=== PATIENT | male | born 1970 | race Caucasian/White ===

== ENCOUNTER 2016-08-07 08:09 | Emergency (ER) | payer OTHER ==
--- NOTE | ~2016-08-07 | EKG ---
PATIENT: SUAD ARMENDARIZ UNIT #: [id number] Ventricular Rate: 79 BPM Atrial Rate: 79 BPM P-R Interval: 162 ms QRS Duration: 112 ms Q-T Interval: 392 ms QTC Calculation(Bezet): 449 ms P Gilbert: 27 degrees Calculated R Gilbert: 40 degrees Calculated T Gilbert: 14 degrees Diagnosis Line: Normal sinus rhythm Diagnosis Line: Normal ECG Diagnosis Line: When compared with ECG of 19-FEB-2016 17:02, Diagnosis Line: No significant change was found Diagnosis Line: Confirmed by JACKIE PALMER MD ([id number]) on Diagnosis Line: 08/08/2016 3:57:45 PM INTERPRETING MD: LAUREN
--- NOTE | ~2016-08-07 | CR63 ---
[facility] A Service of [facility] & [facility] RADIOLOGY TEXT RESULTS PATIENT: SUAD ARMENDARIZ LOCATION: [facility] : 72 UNIT #: [id number] AGE: [address]: Justine Machuca SEX: M ORDER DR: [id number] [facility] [place] [address] [place], [place] [address] [id number] MR#: [id number] Acc #: [id number] NAME: SUAD ARMENDARIZ : 1970 SEX: M STUDY DATE/TIME: 08/07/2016 8:51 UNIT: [facility] ROOM: STUDY DESCRIPTION: CR Chest 2 View Attending Physician: Justine Machuca P.A.-C. Ordering Physician: Justine Machuca P.A.-C. Primary Care Physician: Chico Luna M.D. MEDICAL IMAGING REPORT This report is preliminary unless electronic signature is present EXAM Chest PA and lateral, 08/07/2016 HISTORY Cough, fatigue and chest congestion for 5 days. Benign essential hypertension. Previous smoker. FINDINGS PA and lateral examination of the chest upright shows a good expansion of the parenchyma with a normal distribution of the pulmonary vascularity. There is no indication of congestion, effusion, infiltrate, tumor, or nodular density. The pleural reflections and diaphragmatic contours are normal. The cardiac silhouette and mediastinal anatomy is within normal limits. IMPRESSION Normal chest. Dictated by... Foster Villegas M.D. THIS IS AN ELECTRONICALLY VERIFIED REPORT Foster Villegas M.D. at 08/07/2016 1:44 PM Hung TD: 08/07/2016 09:39 JOB #: [id number] MEDICAL IMAGING REPORT Page 1 of 1 COPY
[~2016-08-07 08:09] MED LIST: ACETAMINOPHEN PO; ALBUTEROL17 GM INH; BACTRIM 400-801 TA1 PO; BACTRIM DS TABL1 TA1 PO; BACTRIM DS TABL1 TA2 DOB; BACTRIM DS TABL1 TAB PO; BENZONATATE PO; CIPRO250 MG PO; CLONAZEPAM2 MG PO; CLONIDINE HCL0.1 MG PO; CORICIDIN HBP F1 TAB PO; COUGH SYRUP; COZAAR PO; DELSYM30 MG/5 ML PO; DICLOFENAC PO; DICYCLOMINE HCL20 MG PO; DOXYCYCLINE HY100 M1 PO; DOXYCYCLINE PO; DOXYCYCLINE150 MG PO; ERYC250 MG PO; ERYTHROMYCIN B500 MG PO; ERYTHROMYCIN F250 MG PO; ERYTHROMYCIN500 MG PO; FLEXERIL PO; FLEXERIL10 M1 PO; FLEXERIL10 MG PO; FLONASE 0.05% N16 G1; FLONASE 0.05% N16 G1 INH; FLONASE 0.05% N16 GM; FLONASE16 GM; GUAIFENESIN400 M1 PO; HCTZ PO; HYDROCHLOROTHIA25 MG; HYDROCHLOROTHIA25 MG PO; HYDROCODON-ACE1 EAC4 PO; HYDROCODON-ACE1 EAC5 PO; HYDROCODON-ACE1 EACH PO; IBUPROFEN PO; IBUPROFEN800 MG PO; IMODIUM2 MG PO; KETOPROFEN PO; KLONOPIN; KLONOPIN PO; KLONOPIN2 MG PO; LISINOPRIL; LISINOPRIL PO; LISINOPRIL10 MG PO; LISINOPRIL20 MG PO; LORATADINE PO; LORTAB 10-5001 EACH PO; LORTAB 5/500 TA1 TA1 PO; LORTAB 7.5-5001 TAB PO; LORTAB 7.51 TAB 7.5/ PO; MEDROL DOSEPAK4 MG DOB; MEDROL PO; MOBIC PO; MUCINEX D ER T1 EACH PO; MUCINEX DM ER1 EAC1 PO; MUCINEX DM1 TAB.SR . PO; NEXIUM PO; NORCO 5/325 TAB1 TAB PO; OMNICEF PO; PERCOCET 5-3251 TAB PO; PERCOCET 71 UDTAB 71 PO; PHENERGAN DM1 ML PO; PHENERGAN PO; PHENERGAN PR; PHENERGAN VC W120 M1 PO; PHENERGAN W/CO120 ML PO; PHENERGAN/CODEIN5 ML PO; PHENERGAN25 MG PO; PREDNISONE PO; PRILOSEC PO; PROMETHAZINE HC25 MG PO; PROMETHAZINE V240 ML PO; PROTONIX PO; RANITIDINE HCL150 M1 PO; REGLAN10 MG PO; ROBITUSSIN A-C-S1 ML PO; ROBITUSSIN ALL118 ML PO; RONDEX SYRUP118 ML PO; STERAPRED5 MG/DOSE1 PO; SUDAFED30 M1 PO; TESSALON200 MG PO; TUSSIONEX PENN473 ML PO; ULTRACET TABLET1 TAB PO; ULTRAM PO; VIBRAMYCIN100 M1 PO; VICODIN PO; VOLTAREN75 MG; WELLBUTRIN; WELLBUTRIN SR150 M1 PO; WELLBUTRIN SR150 MG PO; ZANTAC PO; ZANTAC150 M1 PO; ZANTAC150 MG PO; ZESTRIL10 M1; ZITHROMAX PO; ZITHROMAX1 G/PKT PO; ZYRTEC PO; ZYRTEC10 M1 PO; [UNRECOGNIZED DRUG - REMARK]
== END 2016-08-07 09:28 | disposition home or self-care (01) ==
LOC: CED 08:09
DX: J06.9 Acute upper respiratory infection, unspecified (principal); I10 Essential (primary) hypertension; K21.9 Gastro-esophageal reflux disease without esophagitis; F41.9 Anxiety disorder, unspecified; Z90.89 Acquired absence of other organs; Z79.899 Other long term (current) drug therapy; Z88.0 Allergy status to penicillin; Z91.040 Latex allergy status; Z88.8 Allergy status to other drugs, medicaments and biological substances
CPT/HCPCS: 71020; 93005; 99285